=== PATIENT | male | born 1955 | race Caucasian/White ===

== ENCOUNTER 2016-09-22 10:30 | Inpatient (IN) | payer MEDICAID ==
--- NOTE | 2016-09-22 11:32 | ED PDOC ---
Arrival/HPI - General Chief Complaint: Abdominal Pain Time Seen by Provider: 09/22/16 11:26 Historian: Patient - History of Present Illness Narrative History of Present Illness (Text): 09/22/16 11:31 61-year-old male with a history of coronary artery disease with stents, has a history of diabetes, and hypertension, who presents to the emergency department complaining of 3 days duration of lower abdominal discomfort. Patient states that his pain is constant and worsens with food and drinks. Patient denies any chest pain, upper abdominal pain, shortness of breath, dyspnea on exertion, genitourinary symptoms or any other complaints. PMD: Dr. Chen Time/Duration: < week Symptom Onset: Gradual Symptom Course: Unchanged Activities at Onset: Rest Context: Home Past Medical History - Provider Review Nursing Documentation Reviewed: Yes - Infectious Disease Hx of Infectious Diseases: None - Tetanus Immunization Tetanus Immunization: Unknown - Cardiac Other/Comment: cardiac stents x 3 (dr johnson) - Pulmonary Hx Respiratory Disorders: No - Neurological Hx Neurological Disorder: No Hx Paralysis: No - HEENT Hx HEENT Disorder: No - Renal Hx Renal Disorder: No - Endocrine/Metabolic Hx Diabetes Mellitus Type 2: Yes - Hematological/Oncological Hx Blood Transfusions: No Hx Blood Transfusion Reaction: No - Integumentary Hx Dermatological Disorder: No - Musculoskeletal/Rheumatological Hx Musculoskeletal Disorders: No - Gastrointestinal Hx Colitis: Yes (04/2013) Hx Gastritis: Yes - Genitourinary/Gynecological Hx Genitourinary Disorders: No - Psychiatric Hx Depression: No Hx Emotional Abuse: No Hx Physical Abuse: No Hx Substance Use: No - Past Surgical History Past Surgical History: No Previous - Surgical History Hx Coronary Stent: Yes (x3) - Anesthesia Hx Anesthesia Reactions: No Hx Malignant Hyperthermia: No - Suicidal Assessment Feels Threatened In Home Enviroment: No Family/Social History - Physician Review Nursing Documentation Reviewed: Yes Family/Social History: No Known Family HX Smoking Status: Never Smoked Hx Alcohol Use: No Hx Substance Use: No Hx Substance Use Treatment: No Allergies/Home Meds Allergies/Adverse Reactions: Allergies No Known Allergies Allergy (Verified 03/20/15 23:43) Home Medications: Home Meds Medication Instructions Recorded Confirmed Metformin HCl [Glucophage] 500 mg PO BID 09/22/16 09/22/16 Physical Exam - Physical Exam Narrative Physical Exam (Text): - Review of Systems Constitutional: Normal. absent: Fatigue, Weight Change, Fevers Eyes: Normal ENT: Normal Respiratory: Normal absent: SOB, Cough, Sputum Cardiovascular: Normal absent: Chest pain, Palpitations, Syncope Gastrointestinal: Lower abdominal discomfort. absent: Diarrhea, Nausea, Vomiting Genitourinary: Normal. absent: Dysuria, Frequency, Hematuria Musculoskeletal: Normal. absent: Arthralgias, Back Pain, Neck Pain Skin: Normal Neurological: Normal absent: Focal Weakness Endocrine: Normal Hemo/Lymphatic: Normal Psychiatric: Normal - Physical exam Patient appears age appropriate, speaking full sentences without difficulty. - Systems Exam Head: Present: Atraumatic, Normocephalic Pupils: Present: PERRL Extraocular Muscles: Present: EOMI Conjunctiva: Present: Normal Mouth: Present: Moist Mucous Membranes Neck: Present: Normal Range of Motion. No: MIDLINE TENDERNESS, Paraspinal Tenderness Respiratory/Chest: Present: Clear to Auscultation, Good Air Exchange. No: Respiratory Distress, Accessory Muscle Use, Tachypnic Cardiovascular: Present: Regular Rate and Rhythm, Normal S1, S2, Peripheral Pulses Present. No: Murmurs Abdomen: RLQ and suprapubic tenderness to palpation. No: Peritoneal Signs, Rebound, Guarding, Distention Back: Present: Normal Inspection. No: Midline Tenderness, Paraspinal Tenderness Upper Extremity: Present: Normal Inspection. No: Cyanosis, Edema Lower Extremity: Present: Normal Inspection. No: Edema Neurological: Present: GCS=15, Speech Normal, cranial nerves II through XII fully intact with no cerebellar abnormality, neuro-sensory fully intact. No focal neurological deficits. Skin: Present: Warm, Dry, Normal Color. No: Rashes Lymphatic: Present: OX3, NI, NC Psychiatric: Present: Alert, Oriented x 3, Normal Insight, Normal Concentration Vital Signs Reviewed: Yes Vital Signs Temp Pulse Resp BP Pulse Ox 09/22/16 12:30 93 H 17 107/81 98 09/22/16 11:10 98 F 97 H 18 103/71 98 Temperature: Afebrile Blood Pressure: Normal Pulse: Tachycardic Respiratory Rate: Normal Appearance: Positive for: Well-Appearing, Non-Toxic, Comfortable Pain Distress: None Mental Status: Positive for: Alert and Oriented X 3 Medical Decision Making ED Course and Treatment: 09/22/16 11:31 Impression: 61 year old male complaining of 3 days duration of lower abdominal discomfort. Differential Diagnosis included but are not limited to: UTI vs. Appendicitis vs. Nonspecific abdominal pain Plan: -- Abdomen and Pelvis CT w/o contrast -- Urinalysis -- Labs -- Toradol, Pepcid, and IV fluids -- Reassess and disposition Prior Visits: Previous records reviewed, was last admitted on 03/03/14 and evaluated for chest pain. Patient had a cath done. Patient's other complaint was abdominal pain and based on discharge note it was thought that it was likely secondary to GERD. Progress Notes: 09/22/16 13:54 CT Abdomen and Pelvis with contrast: Dictator : Riley Lockhart MD FINDINGS: LOWER THORAX:Unremarkable. LIVER:Unremarkable. No gross lesion or ductal dilatation. GALLBLADDER AND BILE DUCTS:Unremarkable. PANCREAS:Unremarkable. No gross lesion or ductal dilatation. SPLEEN:Unremarkable. ADRENALS:Unremarkable. No mass. KIDNEYS AND URETERS:There is a left-sided pelvic kidney which is a normal variation VASCULATURE:Unremarkable. No aortic aneurysm. BOWEL: There is severe diverticulitis involving the sigmoid colon in the same location as the previous study. There is mural thickening and mesenteric inflammation. There is no evidence of abscess formation or free air. The findings are best seen on axial images 93 through 103 series 2. APPENDIX:Normal appendix. PERITONEUM:Unremarkable. No free fluid. No free air. LYMPH NODES:Unremarkable. No enlarged lymph nodes. BLADDER:Unremarkable. REPRODUCTIVE:Unremarkable. BONES:No acute fracture. OTHER FINDINGS:None. IMPRESSION: Severe diverticulitis of the sigmoid colon. No evidence of abscess formation or free air 09/22/16 14:16 IV abx ordered pt states his pain significantly improved agrees with admission for IV abx into the hospital hospitalist paged 09/22/16 14:[address] Malik, accepted admission to his service - Lab Interpretations Lab Results: 09/22/16 11:56 09/22/16 11:56 Lab Results 09/22/16 12:19: Urine Color Yellow, Urine Appearance Clear, Urine pH 6.0, Ur Specific [place] 1.025, Urine Protein Negative, Urine Glucose (UA) >=1000, Urine Ketones >=80, Urine Blood Negative, Urine Nitrate Negative, Urine Bilirubin Small H, Urine Urobilinogen 0.2, Ur Leukocyte Esterase Negative 09/22/16 11:56: Sodium 140, Potassium 4.7, Chloride 101, Carbon Dioxide 25, Anion Gap 19, BUN 18, Creatinine 0.8, Est GFR ( Amer) > 60, Est GFR (Non- Af Amer) > 60, Random Glucose 83, Calcium 9.5, Total Bilirubin 1.1, AST 24, ALT 30, Alkaline Phosphatase 52, Total Protein 7.8, Albumin 4.7, Globulin 3.1, Albumin/Globulin Ratio 1.5, Lipase 60 09/22/16 11:56: PT 11.4, INR 1.06, APTT 34.1 H 09/22/16 11:56: WBC 12.4 H D, RBC 6.37 H, Hgb 14.3, Hct 42.2, MCV 66.2 L, MCH 22.4 L, MCHC 33.9, RDW 15.3 H, Plt Count 162, Gran % 71.8 H, Lymph % (Auto) 19.2 L, Lyman % (Auto) 8.2 H, Eos % (Auto) 0.6 L, Baso % (Auto) 0.2, Gran # 8.90 H, Lymph # 2.4, Lyman # 1.0 H, Eos # 0.1, Baso # 0.02 I have reviewed the lab results: Yes - RAD Interpretation Radiology Orders: 09/22/16 11:42 ABD & PELVIS IV CONTRAST ONLY [CT] Stat - Medication Orders Current Medication Orders: Piperacillin Sod/Tazobactam Sod (Zosyn 4.5 Gm In Ns 100ml) 4.5 gm in 100 mls @ 200 mls/hr IVPB STAT STA PRN Reason: Protocol Stop: 09/22/16 14:27 Discontinued Medications Famotidine (Pepcid 20mg/50ml Premix) 20 mg in 50 mls @ 100 mls/hr IV STAT STA Stop: 09/22/16 12:11 Last Admin: 09/22/16 12:08 Dose: 100 mls/hr Sodium Chloride (Sodium Chloride 0.9%) 1,000 mls @ 1,000 mls/hr IV .Q1H STA Stop: 09/22/16 12:41 Last Admin: 09/22/16 12:08 Dose: 1,000 mls/hr Iohexol (Omnipaque 350 100 Ml) Confirm Administered Dose 350 mg .ROUTE .STK-MED ONE Stop: 09/22/16 12:43 Ketorolac Tromethamine (Toradol) 30 mg IVP STAT STA Stop: 09/22/16 11:43 Last Admin: 09/22/16 12:08 Dose: 30 mg - Scribe Statement The provider has reviewed the documentation as recorded by the Willemibrodriguez Romero Provider Scribe Attestation: All medical record entries made by the Scribe were at my direction and personally dictated by me. I have reviewed the chart and agree that the record accurately reflects my personal performance of the history, physical exam, medical decision making, and the department course for this patient. I have also personally directed, reviewed, and agree with the discharge instructions and disposition. Disposition/Present on Arrival - Present on Arrival Any Indicators Present on Arrival: No History of DVT/PE: No History of Uncontrolled Diabetes: No Urinary Catheter: No History of Decub. Ulcer: No History Surgical Site Infection Following: None - Disposition Have Diagnosis and Disposition been Completed?: Yes Diagnosis: Diverticulitis Disposition: HOSPITALIZED Disposition Time: 14:22 Patient Plan: Admission Condition: FAIR Referrals: Shannan Chen MD [Primary Care Provider] - Follow up with primary Forms: [employer] (Latvian)
[2016-09-22] MEDS ORDERED: Famotidine 20mg/50ml 20 MG/50 ML BAG IV STA (11:42)
[2016-09-22] MEDS ORDERED: Sodium Chloride 0.9% 1,000 ML IV STA (11:42)
[2016-09-22 12:29] LABS: URINE BILIRUBIN SMALL (NEGATIVE); URINE BLOOD NEGATIVE (NEGATIVE); URINE GLUCOSE (UA) >=1000 mg/dL (NEGATIVE); URINE LEUKOCYTE ESTERASE NEGATIVE Leu/uL (NEGATIVE); URINE NITRATE NEGATIVE (NEGATIVE); URINE PROTEIN NEGATIVE mg/dL (<30 mg/dL); URINE UROBILINOGEN 0.2 E.U./dL (<1 E.U./dL)
[2016-09-22 12:29] LABS: BASO # 0.02 K/mm3 (0.0-2.0); BASO % 0.2 % (0.0-3.0); EOS # 0.1 (0.0-0.7); EOS % 0.6 % (1.5-5.0); GRAN % 71.8 % (50.0-68.0); HEMOGLOBIN 14.3 g/dL (14.0-18.0); LYMPH # 2.4 (1.2-3.4); LYMPH % 19.2 % (22.0-35.0); MEAN CELL VOLUME 66.2 fl (80.0-105.0); MEAN CORPUSCULAR HEMOGLOBIN 22.4 pg (25.0-35.0); MEAN CORPUSCULAR HGB CONC 33.9 g/dl (31.0-37.0); MONO % 8.2 % (1.0-6.0); RBC 6.37 10^6/uL (3.5-6.1); RED CELL DISTRIBUTION WIDTH 15.3 % (11.5-14.5); WHITE BLOOD COUNT 12.4 10^3/ul (4.5-11.0)
[2016-09-22 12:32] LABS: URINE APPEARANCE CLEAR (CLEAR); URINE COLOR YELLOW (YELLOW)
[2016-09-22 12:36] LABS: ALB/GLOB RATIO 1.5 (1.1-1.8); ALBUMIN 4.7 g/dL (3.0-4.8); ALT/SGPT 30 U/L (7-56); AST/SGOT 24 U/L (15-59); BLOOD UREA NITROGEN 18 mg/dL (7-21); CALCIUM 9.5 mg/dL (8.4-10.5); GFR AFRICAN-AMERICAN > 60; GFR NON-AFRICAN AMERICAN > 60; INR 1.06 (0.93-1.08); LIPASE 60 U/L (23-300); PARTIAL THROMBOPLASTIN TIME 34.1 Seconds (23.7-30.8); PROTHROMBIN TIME 11.4 Seconds (9.9-11.8)
[2016-09-22] MEDS ORDERED: Iohexol 350 MG/100 ML VIAL ONE (12:42)
[2016-09-22 13:04] LABS: PLATELET COUNT 162 10^3/uL (120.0-450.0)
--- NOTE | 2016-09-22 13:47 | CT ---
PROCEDURE: CT Abdomen and Pelvis with contrast HISTORY: abd pain COMPARISON: None. TECHNIQUE: Contrast dose: 100 cc of Omni 350 Radiation dose: Total exam DLP = 646 mGy-cm. This CT exam was performed using one or more of the following dose reduction techniques: Automated exposure control, adjustment of the mA and/or kV according to patient size, and/or use of iterative reconstruction technique. FINDINGS: LOWER THORAX: Unremarkable. LIVER: Unremarkable. No gross lesion or ductal dilatation. GALLBLADDER AND BILE DUCTS: Unremarkable. PANCREAS: Unremarkable. No gross lesion or ductal dilatation. SPLEEN: Unremarkable. ADRENALS: Unremarkable. No mass. KIDNEYS AND URETERS: There is a left-sided pelvic kidney which is a normal variation VASCULATURE: Unremarkable. No aortic aneurysm. BOWEL: There is severe diverticulitis involving the sigmoid colon in the same location as the previous study. There is mural thickening and mesenteric inflammation. There is no evidence of abscess formation or free air. The findings are best seen on axial images 93 through 103 series 2. APPENDIX: Normal appendix. PERITONEUM: Unremarkable. No free fluid. No free air. LYMPH NODES: Unremarkable. No enlarged lymph nodes. BLADDER: Unremarkable. REPRODUCTIVE: Unremarkable. BONES: No acute fracture. OTHER FINDINGS: None. IMPRESSION: Severe diverticulitis of the sigmoid colon. No evidence of abscess formation or free air
[2016-09-22] MEDS ORDERED: Piperacill/Tazo 4.5gm in NS 4.5 GM/100 ML BAG IVPB STA (13:58)
--- NOTE | 2016-09-22 15:42 | CP.PCM.HP ---
<Yanet Griggs - Last Filed: 09/22/16 16:10> History of Present Illness - History of Present Illness History of Present Illness: 61 year old Japanese Male with pmhx of CAD s/p 6 stents, recent cardiac cath, DM, HTN presents to the ED with 3 day history of lower abdominal pain. Patient reports that pain started Thursday night. Sharp in nature and was intermittent. Pain progressively has gotten worse and is now constant. Non- radiating. States that he has had this same pain 3 times prior. From previous ED records, appears to have been diagnosed with diverticulitis in the past. Pain is worse with eating. Reports having recent colonoscopy done 10/2015 at [facility] [place], reports that he was told he had "inflammation of the colon". Denies fevers, chills, nausea, vomiting, chest pain, palpitations, shortness of breath, diarrhea, constipation. Last BM was this morning and it was normal. Hasn't eaten since yesterday. ED course: Zosyn 4.5gm x 1, Toradol 30mg x 1, Pepcid 20mg, NS bolus x 1 PMD: Dr. Chen Pbx Teacher: Dr. Crockett Allergies: NKDA Medications: Metformin 500mg BID, Nexium, ASA 81mg, Plavix 75mg Medical Hx: CAD s/p 6 stents, DM, HTN Surgical Hx: denies Social Hx: denies tobacco, alcohol, drug use Family Hx: denies hx of colon cancer, father had heart disease, mother has diabetes Present on Admission - Present on Admission Any Indicators Present on Admission: No History of DVT/PE: No History of Uncontrolled Diabetes: No Urinary Catheter: No Decubitus Ulcer Present: No Review of Systems - Review of Systems All systems: reviewed and no additional remarkable complaints except - Constitutional Constitutional: absent: Chills, Fever, Night Sweats - EENT Eyes: absent: Blurred Vision, Change in Vision Ears: absent: Decreased Hearing, Dizziness - Cardiovascular Cardiovascular: absent: Chest Pain, Dyspnea, Edema, Lightheadedness, Palpitations - Respiratory Respiratory: absent: Cough, Dyspnea, Wheezing - Gastrointestinal Gastrointestinal: Abdominal Pain, Bloating. absent: Constipation, Diarrhea, Loose Stools, Nausea, Vomiting - Genitourinary Genitourinary: absent: Difficulty Urinating, Dysuria, Urinary Frequency - Musculoskeletal Musculoskeletal: absent: Arthralgias, Back Pain, Neck Pain, Numbness, Tingling - Integumentary Integumentary: absent: Rash, Sores, Swelling - Neurological Neurological: absent: Abnormal Gait, Confusion, Dizziness, Numbness, Headaches, Tingling - Psychiatric Psychiatric: absent: Anxiety, Depression Past Patient History - Infectious Disease Hx of Infectious Diseases: None - Tetanus Immunizations Tetanus Immunization: Unknown - Past Medical History & Family History Past Medical History?: Yes - Past Social History Smoking Status: Never Smoked - CARDIAC Other/Comment: cardiac stents x 3 (dr crockett) - PULMONARY Hx Respiratory Disorders: No - NEUROLOGICAL Hx Neurological Disorder: No Hx Paralysis: No - HEENT Hx HEENT Problems: No - RENAL Hx Chronic Kidney Disease: No - ENDOCRINE/METABOLIC Hx Diabetes Mellitus Type 2: Yes - HEMATOLOGICAL/ONCOLOGICAL Hx Blood Transfusions: No Hx Blood Transfusion Reaction: No - INTEGUMENTARY Hx Dermatological Problems: No - MUSCULOSKELETAL/RHEUMATOLOGICAL Hx Musculoskeletal Disorders: No - GASTROINTESTINAL Hx Colitis: Yes (04/2013) Hx Gastritis: Yes - GENITOURINARY/GYNECOLOGICAL Hx Genitourinary Disorders: No - PSYCHIATRIC Hx Depression: No Hx Emotional Abuse: No Hx Physical Abuse: No Hx Substance Use: No - SURGICAL HISTORY Hx Coronary Stent: Yes (x3) - ANESTHESIA Hx Anesthesia Reactions: No Hx Malignant Hyperthermia: No Meds Allergies/Adverse Reactions: Allergies Allergy/AdvReac Type Severity Reaction Status Date / Time No Known Allergies Allergy Verified 03/20/15 23:43 Physical Exam - Constitutional Appears: Well, No Acute Distress - Head Exam Head Exam: ATRAUMATIC, NORMAL INSPECTION - Eye Exam Eye Exam: EOMI, Normal appearance - ENT Exam ENT Exam: Mucous Membranes Moist - Neck Exam Neck exam: Positive for: Full Rom - Respiratory Exam Respiratory Exam: Clear to Auscultation Bilateral, NORMAL BREATHING PATTERN. absent: Rales, Rhonchi, Wheezes - Cardiovascular Exam Cardiovascular Exam: REGULAR RHYTHM, +S1, +S2 - GI/Abdominal Exam GI & Abdominal Exam: Normal Bowel Sounds, Soft, Tenderness. absent: Distended, Guarding, Rebound, Rigid Additional comments: + TTP in RLQ and LLQ Soft, non-distended, no rebound, guarding, or rigidity - Extremities Exam Extremities exam: Positive for: normal inspection, pedal pulses present. Negative for: calf tenderness - Back Exam Back exam: NORMAL INSPECTION - Neurological Exam Neurological exam: Alert, CN II-XII Intact, Normal Gait, Oriented x3 - Psychiatric Exam Psychiatric exam: Normal Affect, Normal Mood - Skin Skin Exam: Normal Color, Warm Results - Vital Signs Recent Vital Signs: Last Vital Signs Temp 98 F 09/22/16 11:10 Pulse 79 09/22/16 14:35 Resp 18 09/22/16 14:35 BP 111/63 09/22/16 14:35 Pulse Ox 100 09/22/16 14:35 - Labs Result Diagrams: 09/22/16 11:56 09/22/16 11:56 Assessment & Plan - Assessment and Plan (Free Text) Assessment: 61 yo Japanese Male with pmhx of CAD s/p 3 stents, DM, HTN presents with 3 day history of lower abdominal pain. CT abd/pelvis showing severe sigmoid diverticulitis, no evidence of abscess formation or free air. Plan: 1. Sigmoid Diverticulitis, Severe -Stable, afebrile -Admit as inpatient -Leukocytosis: 12.4, no bands -Recieved Zosyn x 1 dose in the ED -Will start Flagyl 500mg Q8H and Rocephin 1gm daily -Pain control: Toradol 30mg Q6H prn pain -NS @ 100/hr -Diet NPO except medications -Serial abdominal exams -F/U am labs -Will attempt to retrieve medical records from [facility] [place] 2. Hx of CAD, S/P 3 stents -Will order EKG -Continue ASA/Plavix -Continue Lipitor 20mg daily -Was recently admitted for chest pain 02/2016, Cath at that time showed no acute changes 3. Hypertension -BPs controlled, patient is not taking BP medications at home currently -Will continue to monitor 4. Diabetes Mellitus, Type 2 -On Metformin 500mg BID at home -ISS with accuchecks Q6H 5. GI/DVT ppx -Protonix 40mg daily -Lovenox 40mg daily Yanet Griggs DO, PGY-1 <King DEL VALLE,Emily - Last Filed: 09/22/16 16:39> Results - Vital Signs Recent Vital Signs: Last Vital Signs Temp 98 F 09/22/16 11:10 Pulse 74 09/22/16 15:57 Resp 19 09/22/16 15:57 BP 134/84 09/22/16 15:57 Pulse Ox 100 09/22/16 15:57 - Labs Result Diagrams: 09/22/16 11:56 09/22/16 11:56 Attending/Attestation - Attestation I have personally seen and examined this patient.: Yes I have fully participated in the care of the patient.: Yes I have reviewed all pertinent clinical information: Yes Notes (Text): 09/22/16 16:30 Patient was seen and examined with medical detailist. Agreed with resident assessment and plan. 61 year old male with PMH of CAD s/p 6 stents, recent, DM, Hyperlipidemia is admitted with H/o abdominal pain found to sigmoid diverticulitis, Agreed with IV antibiotic,pain control. Patient is NPO except medication at this time. If symptoms improve, will start on clear liquid diet tomorrow. Management plan was discussed in detail with patient Education was provided.
[2016-09-22] MEDS: Sodium Chloride 0.9% 1,000 ML IV SCH (15:55)
[2016-09-22] MEDS: Enoxaparin 40 mg Syringe SC SCH (15:56)
[2016-09-22] MEDS: metroNIDAZOLE IV 500 mg/100 ml 500 MG/100 ML BAG IVPB SCH ×2 (15:56→22:28)
[2016-09-22] MEDS ORDERED: Morphine 2 mg/ml ISec IM PRN (16:27)
[2016-09-22] MEDS: cefTRIAXone 1 gm 1 GM/100 ML BAG IVPB SCH (17:45)
[2016-09-22] MEDS ORDERED: Pneumococcal 23-Valent Vaccine IM ONE (18:47)
[2016-09-22 18:48] VITALS: BMI 27.3
--- NOTE | 2016-09-22 19:06 | CARD ---
APPROVED REPORT EKG Measurement Heart [id number] CT [id number] <Conclusion> Normal sinus rhythm Normal ECG
[2016-09-22] MEDS: Insulin Lispro (humaLOG) LOW Coverage SC SCH ×2 (20:41→22:27)
[2016-09-23] MEDS: Sodium Chloride 0.9% 1,000 ML IV SCH (01:11)
[2016-09-23] MEDS: metroNIDAZOLE IV 500 mg/100 ml 500 MG/100 ML BAG IVPB SCH (05:46)
[2016-09-23 08:30] VITALS: BP 107/72; PULSE 86; RESP 20; TEMP 97.9; O2SAT 97
[2016-09-23] MEDS: Enoxaparin 40 mg Syringe SC SCH (09:23)
[2016-09-23] MEDS: Insulin Lispro (humaLOG) LOW Coverage SC SCH (09:25)
[2016-09-23] MEDS: cefTRIAXone 1 gm 1 GM/100 ML BAG IVPB SCH (09:26)
--- NOTE | 2016-09-23 12:27 | CP.PCM.DIS ---
<Yanet Griggs - Last Filed: 09/23/16 16:55> Provider - Provider Date of Admission: 09/22/16 14:22 Attending physician: Boston Crum MD Primary care physician: Shannan Chen MD Time Spent in preparation of Discharge (in minutes): 35 Hospital Course - Lab Results Lab Results: Most Recent Lab Values WBC 12.4 10^3/ul (4.5-11.0) H D 09/22/16 11:56 RBC 6.37 10^6/uL (3.5-6.1) H 09/22/16 11:56 Hgb 14.3 g/dL (14.0-18.0) 09/22/16 11:56 Hct 42.2 % (42.0-52.0) 09/22/16 11:56 MCV 66.2 fl (80.0-105.0) L 09/22/16 11:56 MCH 22.4 pg (25.0-35.0) L 09/22/16 11:56 MCHC 33.9 g/dl (31.0-37.0) 09/22/16 11:56 RDW 15.3 % (11.5-14.5) H 09/22/16 11:56 Plt Count 162 10^3/uL (120.0-450.0) 09/22/16 11:56 Gran % 71.8 % (50.0-68.0) H 09/22/16 11:56 Lymph % (Auto) 19.2 % (22.0-35.0) L 09/22/16 11:56 [place] % (Auto) 8.2 % (1.0-6.0) H 09/22/16 11:56 Eos % (Auto) 0.6 % (1.5-5.0) L 09/22/16 11:56 Baso % (Auto) 0.2 % (0.0-3.0) 09/22/16 11:56 Gran # 8.90 (1.4-6.5) H 09/22/16 11:56 Lymph # 2.4 (1.2-3.4) 09/22/16 11:56 [place] # 1.0 (0.1-0.6) H 09/22/16 11:56 Eos # 0.1 (0.0-0.7) 09/22/16 11:56 Baso # 0.02 K/mm3 (0.0-2.0) 09/22/16 11:56 PT 11.4 Seconds (9.9-11.8) 09/22/16 11:56 INR 1.06 (0.93-1.08) 09/22/16 11:56 APTT 34.1 Seconds (23.7-30.8) H 09/22/16 11:56 Sodium 140 mmol/L (132-148) 09/22/16 11:56 Potassium 4.7 mmol/L (3.6-5.0) 09/22/16 11:56 Chloride 101 mmol/L (98-107) 09/22/16 11:56 Carbon Dioxide 25 mmol/L (21-33) 09/22/16 11:56 Anion Gap 19 (10-20) 09/22/16 11:56 BUN 18 mg/dL (7-21) 09/22/16 11:56 Creatinine 0.8 mg/dL (0.5-1.4) 09/22/16 11:56 Est GFR ( Amer) > 60 09/22/16 11:56 Est GFR (Non-Af Amer) > 60 09/22/16 11:56 POC Glucose (mg/dL) 129 mg/dL (65-110) H 09/23/16 11:31 Random Glucose 83 mg/dL (70-110) 09/22/16 11:56 Calcium 9.5 mg/dL (8.4-10.5) 09/22/16 11:56 Total Bilirubin 1.1 mg/dL (0.2-1.3) 09/22/16 11:56 AST 24 U/L (15-59) 09/22/16 11:56 ALT 30 U/L (7-56) 09/22/16 11:56 Alkaline Phosphatase 52 U/L (38-133) 09/22/16 11:56 Total Protein 7.8 g/dL (5.8-8.3) 09/22/16 11:56 Albumin 4.7 g/dL (3.0-4.8) 09/22/16 11:56 Globulin 3.1 gm/dL 09/22/16 11:56 Albumin/Globulin Ratio 1.5 (1.1-1.8) 09/22/16 11:56 Lipase 60 U/L (23-300) 09/22/16 11:56 Urine Color Yellow (YELLOW) 09/22/16 12:19 Urine Appearance Clear (CLEAR) 09/22/16 12:19 Urine pH 6.0 (4.7-8.0) 09/22/16 12:19 Ur Specific [place] 1.025 (1.005-1.035) 09/22/16 12:19 Urine Protein Negative mg/dL (<30 mg/dL) 09/22/16 12:19 Urine Glucose (UA) >=1000 mg/dL (NEGATIVE) 09/22/16 12:19 Urine Ketones >=80 mg/dL (NEGATIVE) 09/22/16 12:19 Urine Blood Negative (NEGATIVE) 09/22/16 12:19 Urine Nitrate Negative (NEGATIVE) 09/22/16 12:19 Urine Bilirubin Small (NEGATIVE) H 09/22/16 12:19 Urine Urobilinogen 0.2 E.U./dL (<1 E.U./dL) 09/22/16 12:19 Ur Leukocyte Esterase Negative Solomon/uL (NEGATIVE) 09/22/16 12:19 - Hospital Course Hospital Course: 61 year old Indonesian Male with pmhx of CAD s/p 6 stents, recent cardiac cath, DM, HTN presents to the ED with 3 day history of lower abdominal pain. Patient reports that pain started Saturday night. Sharp in nature and was intermittent. Pain progressively has gotten worse and is now constant. Non- radiating. States that he has had this same pain 3 times prior. From previous ED records, appears to have been diagnosed with diverticulitis in the past. Pain is worse with eating. Reports [place] [facility] [place] reports that he was told he had "inflammation of the colon". Denies fevers, chills, nausea, vomiting, chest pain, palpitations, shortness of breath, diarrhea, constipation. Last BM was this morning and it was normal. Hasn't eaten since yesterday. Patient was admitted and started on IV Rocephin and IV Flagyl for severe sigmoid diverticulitis. Patient was made NPO and started on IV fluids. Patient was found to have a leukocytosis of 12.4 on admission. On HD#2, pain resolved, diet was advanced to clear liquid diet. Patient tolerated his diet. Patient refused blood work. Stated that he felt fine and doesn't need to have to blood redrawn. Patient was eager to go home and reports that he has to go to work this afternoon. Patient clinically was improving and was clear for discharge home. Patient instructed to follow up with GI and to also follow up with General Surgery as this is his 3 episode of diverticulitis. Full liquid diet for today and tomorrow, and can advance to regular diet if tolerated. Will need outpatient colonoscopy in 4-6 weeks. Instructed to continue PO cipro and flagyl for 1 week. All questions and concerns were addressed. Discharge Exam - Head Exam Head Exam: ATRAUMATIC, NORMAL INSPECTION - Eye Exam Eye Exam: EOMI, Normal appearance Pupil Exam: NORMAL ACCOMODATION - ENT Exam ENT Exam: Mucous Membranes Moist - Neck Exam Neck exam: Full Rom - Respiratory Exam Respiratory Exam: Clear to PA & Lateral, NORMAL BREATHING PATTERN, UNREMARKABLE. absent: Rales, Rhonchi, Wheezes - Cardiovascular Exam Cardiovascular Exam: REGULAR RHYTHM, +S1, +S2 - GI/Abdominal Exam GI & Abdominal Exam: Normal Bowel Sounds, Soft. absent: Distended, Guarding, Rigid, Tenderness - Extremities Exam Extremities exam: full ROM, normal inspection, pedal pulses present - Back Exam Back exam: NORMAL INSPECTION - Neurological Exam Neurological exam: Alert, CN II-XII Intact, Normal Gait, Oriented x3 - Psychiatric Exam Psychiatric exam: Normal Affect, Normal Mood - Skin Skin Exam: Dry, Intact, Normal Color, Warm Discharge Plan - Discharge Medications Prescriptions: Ciprofloxacin [Cipro] 500 mg PO BID #14 tab metroNIDAZOLE [Flagyl] 500 mg PO Q8 #21 tab - Follow Up Plan Condition: FAIR Disposition: HOME/ ROUTINE Instructions: Diverticulitis (DC), Pneumococcal Vaccine for Adults (DC), Low Fiber Diet (GEN), How to Check Your Blood Sugar (DC), Basic Carbohydrate Counting (DC), Diverticulitis Diet (DC) Additional Instructions: 1. Follow up with PMD within 1 week. 2. Take antibiotics as written. 3. Maintain adequate hydration. 4. Be sure to eat high fiber diet to ensure regular bowel movements and avoid constipation. 5. Avoid foods with seeds. 6. Speak with PMD about seeing a general surgeon for you recurrent issues with diverticulitis. Referrals: Shannan Chen MD [Primary Care Provider] - <oBston Crum - Last Filed: 09/23/16 20:03> Provider - Provider Date of Admission: 09/22/16 14:22 Attending physician: Boston Crum MD Primary care physician: Shannan Chen MD Hospital Course - Lab Results Lab Results: Most Recent Lab Values WBC 12.4 10^3/ul (4.5-11.0) H D 09/22/16 11:56 RBC 6.37 10^6/uL (3.5-6.1) H 09/22/16 11:56 Hgb 14.3 g/dL (14.0-18.0) 09/22/16 11:56 Hct 42.2 % (42.0-52.0) 09/22/16 11:56 MCV 66.2 fl (80.0-105.0) L 09/22/16 11:56 MCH 22.4 pg (25.0-35.0) L 09/22/16 11:56 MCHC 33.9 g/dl (31.0-37.0) 09/22/16 11:56 RDW 15.3 % (11.5-14.5) H 09/22/16 11:56 Plt Count 162 10^3/uL (120.0-450.0) 09/22/16 11:56 Gran % 71.8 % (50.0-68.0) H 09/22/16 11:56 Lymph % (Auto) 19.2 % (22.0-35.0) L 09/22/16 11:56 [place] % (Auto) 8.2 % (1.0-6.0) H 09/22/16 11:56 Eos % (Auto) 0.6 % (1.5-5.0) L 09/22/16 11:56 Baso % (Auto) 0.2 % (0.0-3.0) 09/22/16 11:56 Gran # 8.90 (1.4-6.5) H 09/22/16 11:56 Lymph # 2.4 (1.2-3.4) 09/22/16 11:[address] [place] # 1.0 (0.1-0.6) H 09/22/16 11:56 Eos # 0.1 (0.0-0.7) 09/22/16 11:56 Baso # 0.02 K/mm3 (0.0-2.0) 09/22/16 11:56 PT 11.4 Seconds (9.9-11.8) 09/22/16 11:56 INR 1.06 (0.93-1.08) 09/22/16 11:56 APTT 34.1 Seconds (23.7-30.8) H 09/22/16 11:56 Sodium 140 mmol/L (132-148) 09/22/16 11:56 Potassium 4.7 mmol/L (3.6-5.0) 09/22/16 11:56 Chloride 101 mmol/L (98-107) 09/22/16 11:56 Carbon Dioxide 25 mmol/L (21-33) 09/22/16 11:56 Anion Gap 19 (10-20) 09/22/16 11:56 BUN 18 mg/dL (7-21) 09/22/16 11:56 Creatinine 0.8 mg/dL (0.5-1.4) 09/22/16 11:56 Est GFR ( Amer) > 60 09/22/16 11:56 Est GFR (Non-Af Amer) > 60 09/22/16 11:56 POC Glucose (mg/dL) 129 mg/dL (65-110) H 09/23/16 11:31 Random Glucose 83 mg/dL (70-110) 09/22/16 11:56 Calcium 9.5 mg/dL (8.4-10.5) 09/22/16 11:56 Total Bilirubin 1.1 mg/dL (0.2-1.3) 09/22/16 11:56 AST 24 U/L (15-59) 09/22/16 11:56 ALT 30 U/L (7-56) 09/22/16 11:56 Alkaline Phosphatase 52 U/L (38-133) 09/22/16 11:56 Total Protein 7.8 g/dL (5.8-8.3) 09/22/16 11:56 Albumin 4.7 g/dL (3.0-4.8) 09/22/16 11:56 Globulin 3.1 gm/dL 09/22/16 11:56 Albumin/Globulin Ratio 1.5 (1.1-1.8) 09/22/16 11:56 Lipase 60 U/L (23-300) 09/22/16 11:56 Urine Color Yellow (YELLOW) 09/22/16 12:19 Urine Appearance Clear (CLEAR) 09/22/16 12:19 Urine pH 6.0 (4.7-8.0) 09/22/16 12:19 Ur Specific [place] 1.025 (1.005-1.035) 09/22/16 12:19 Urine Protein Negative mg/dL (<30 mg/dL) 09/22/16 12:19 Urine Glucose (UA) >=1000 mg/dL (NEGATIVE) 09/22/16 12:19 Urine Ketones >=80 mg/dL (NEGATIVE) 09/22/16 12:19 Urine Blood Negative (NEGATIVE) 09/22/16 12:19 Urine Nitrate Negative (NEGATIVE) 09/22/16 12:19 Urine Bilirubin Small (NEGATIVE) H 09/22/16 12:19 Urine Urobilinogen 0.2 E.U./dL (<1 E.U./dL) 09/22/16 12:19 Ur Leukocyte Esterase Negative [place]/uL (NEGATIVE) 09/22/16 12:19 Attending/Attestation - Attestation I have personally seen and examined this patient.: Yes I have fully participated in the care of the patient.: Yes I have reviewed all pertinent clinical information, including history, physical exam and plan: Yes Notes (Text): I have seen and examined patient at bedside. Agree with the note above with the following additions/ exceptions: Briefly this is 61 year old [place] Male with history of CAD s/p 6 stents, recent cardiac cath, DM-2, HTN, h/o diverticulitis x2 presents to the ED with 3 day history of lower abdominal pain most likely due to sigmoid diverticulitis. He was made NPO and was given IVF. His diet was advanced today to full liquids which he tolerated. Patient denies any complaints today including nausea, vomiting or abdominal pain. He has outpatient GI appt next week. He also has updated PMD (Dr Chen) about that as well. Patient is eager to go home and wants to be discharged sandra. Dr Boston Crum
== END 2016-09-23 17:58 | disposition home or self-care (01) | DRG 183 ==
LOC: ED 10:30 → ERH 14:22 → 5RSO 16:23
PROVIDERS: ADMIT Internal Medicine; ATTEND Hospitalist
DX: K57.32 Diverticulitis of large intestine without perforation or abscess without bleeding (principal); I10 Essential (primary) hypertension; I25.10 Atherosclerotic heart disease of native coronary artery without angina pectoris; E11.9 Type 2 diabetes mellitus without complications; Z79.84 Long term (current) use of oral hypoglycemic drugs; Z95.5 Presence of coronary angioplasty implant and graft

== ENCOUNTER 2016-10-05 21:55 | Emergency (ER) | payer MEDICAID ==
[2016-10-05 21:56] VITALS: BMI 27.3
[2016-10-05 22:17] VITALS: BP 128/87; PULSE 64; RESP 18; TEMP 98.1; O2SAT 99
--- NOTE | 2016-10-05 22:43 | ED PDOC ---
Arrival/HPI - General Chief Complaint: Wound Check Time Seen by Provider: 10/05/16 22:40 - History of Present Illness Narrative History of Present Illness (Text): 10/05/16 22:42 61 y/o male, pmh including diverticulitis, was admitted to the hospital and receive lovenox as prophylaxis for DVT, here to ensure that the lovenox injection site is not infected. Pt. has no pain, ecchymosis been resolving, no fever or chills, no headache or night sweat, no rash, no numbness or tingling, no change in vision, no other medical or psychological complaints. Past Medical History - Provider Review Nursing Documentation Reviewed: Yes - Infectious Disease Hx of Infectious Diseases: None - Tetanus Immunization Tetanus Immunization: Unknown - Cardiac Hx Cardiac Disorders: (cad) Hx Angina: Yes - Pulmonary Hx Respiratory Disorders: No - Neurological Hx Neurological Disorder: No - HEENT Hx HEENT Disorder: No - Renal Hx Renal Disorder: No - Endocrine/Metabolic Hx Diabetes Mellitus Type 2: Yes - Hematological/Oncological Hx Blood Transfusions: No Hx Blood Transfusion Reaction: No - Integumentary Hx Dermatological Disorder: No - Musculoskeletal/Rheumatological Hx Falls: No - Gastrointestinal Hx Gastrointestinal Disorders: Yes (Gastritis, colitis) Hx Diverticulitis: Yes Hx Gastroesophageal Reflux: Yes - Genitourinary/Gynecological Hx Genitourinary Disorders: No - Psychiatric Hx Depression: No Hx Emotional Abuse: No Hx Physical Abuse: No Hx Substance Use: No - Past Surgical History Past Surgical History: No Previous - Surgical History Hx Cardiac Catheterization: Yes (recent 03/03/16 dr johnson) Hx Coronary Stent: Yes (6 stents since 2008) - Anesthesia Hx Anesthesia Reactions: No Hx Malignant Hyperthermia: No - Suicidal Assessment Feels Threatened In Home Enviroment: No Family/Social History - Physician Review Nursing Documentation Reviewed: Yes Family/Social History: Unknown Family HX Smoking Status: Never Smoked Hx Alcohol Use: No Hx Substance Use: No Hx Substance Use Treatment: No Allergies/Home Meds Allergies/Adverse Reactions: Allergies No Known Allergies Allergy (Verified 03/20/15 23:43) Home Medications: Home Meds Medication Instructions Recorded Confirmed Metformin HCl [Glucophage] 500 mg PO BID 09/22/16 10/05/16 Review of Systems - Review of Systems Constitutional: absent: Fatigue, Fevers Eyes: absent: Vision Changes ENT: absent: Hearing Changes Respiratory: absent: SOB, Cough Cardiovascular: absent: Chest Pain Gastrointestinal: absent: Abdominal Pain, Diarrhea, Nausea, Vomiting Musculoskeletal: absent: Arthralgias, Back Pain Skin: Rash. absent: Pruritis Neurological: absent: Headache, Dizziness Physical Exam Vital Signs Reviewed: Yes Vital Signs Temp Pulse Resp BP Pulse Ox 10/05/16 22:14 98.1 F 64 18 128/87 99 Temperature: Afebrile Blood Pressure: Normal Pulse: Regular Respiratory Rate: Normal Appearance: Positive for: Well-Appearing, Non-Toxic, Comfortable Pain Distress: None Mental Status: Positive for: Alert and Oriented X 3 - Systems Exam Head: Present: Atraumatic, Normocephalic Pupils: Present: PERRL Extroacular Muscles: Present: EOMI Conjunctiva: Present: Normal Mouth: Present: Moist Mucous Membranes Neck: Present: Normal Range of Motion Respiratory/Chest: Present: Clear to Auscultation, Good Air Exchange. No: Respiratory Distress, Accessory Muscle Use Cardiovascular: Present: Regular Rate and Rhythm, Normal S1, S2. No: Murmurs Abdomen: Present: Normal Bowel Sounds, Other (visible resolving ecchymosis with no cellulitis, no abscess. ). No: Tenderness, Distention, Peritoneal Signs, Rebound, Guarding Back: Present: Normal Inspection Upper Extremity: Present: Normal Inspection. No: Cyanosis, Edema Lower Extremity: Present: Normal Inspection. No: Edema Neurological: Present: GCS=15, CN II-XII Intact, Speech Normal Skin: Present: Warm, Dry, Normal Color. No: Rashes Psychiatric: Present: Alert, Oriented x 3, Normal Insight, Normal Concentration Medical Decision Making ED Course and Treatment: 10/05/16 22:44 -there is no emergent indication of any labs or radiology test indicated at this time. pt. is on daily aspirin but no other antiplatete or anticoagulant. -Discharge home with education on follow up with your own pmd, return to the ER for any new or worsening signs or symptoms. 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 Disposition/Present on Arrival - Present on Arrival Any Indicators Present on Arrival: No History of DVT/PE: No History of Uncontrolled Diabetes: No Urinary Catheter: No History of Decub. Ulcer: No History Surgical Site Infection Following: None - Disposition Have Diagnosis and Disposition been Completed?: Yes Diagnosis: General medical exam Disposition: HOME/ ROUTINE Disposition Time: 22:45 Patient Plan: Discharge Condition: GOOD Additional Instructions: -Discharge home with education on follow up with your own pmd, return to the ER for any new or worsening signs or symptoms. Ref[place]: [facility] [place] [facility] [place] - Follow up with primary Forms: [employer] ([place] Sor[place])
== END 2016-10-05 22:45 | disposition home or self-care (01) ==
LOC: ED 21:55
DX: Z00.8 Encounter for other general examination (principal)